=== PATIENT | female | born 1990 | race Two or more races ===

== ENCOUNTER → 2021-10-18 | Outpatient (CLI) | payer OTHER | END | disposition home or self-care (01) | LOC: LAB 10:25 | PROVIDERS: ATTEND Internal Medicine | DX: N76.0 Acute vaginitis (principal); A56.2 Chlamydial infection of genitourinary tract, unspecified; Z86.19 Personal history of other infectious and parasitic diseases ==

== ENCOUNTER → 2021-12-31 | Outpatient (CLI) | payer OTHER | END | disposition home or self-care (01) | LOC: LAB 12:38 | PROVIDERS: ATTEND Internal Medicine | DX: Z11.3 Encounter for screening for infections with a predominantly sexual mode of transmission (principal); Z72.51 High risk heterosexual behavior; Z86.19 Personal history of other infectious and parasitic diseases ==